=== PATIENT | male | born 1935 | race Caucasian/White ===

== ENCOUNTER 2020-03-17 14:29 | Emergency (ER) | payer OTHER ==
[~2020-03-17] VITALS: Ht 185.4 cm; Wt 94.8 kg
[2020-03-17 15:00] LABS: BASOPHILS # (AUTO) 0.1 /CMM (0.0-0.2); BASOPHILS % (AUTO) 1.2 % (0.0-2.0); EOSINOPHILS % (AUTO) 0.5 % (0.0-6.0); HEMATOCRIT 38 % (39-51); HEMOGLOBIN 12.6 g/dL (13.5-17.5); LYMPHOCYTES # (AUTO) 1.7 /CMM (0.8-4.8); LYMPHOCYTES % (AUTO) 21.1 % (20.0-44.0); MEAN CORPUSCULAR HGB CONC 34 g/dl (31.0-36.0); MEAN CORPUSCULAR VOLUME 92 fL (80-96); MONOCYTES # (AUTO) 0.7 /CMM (0.1-1.30); MONOCYTES % (AUTO) 8.5 % (2.0-12.0); NEUTROPHILS # (AUTO) 5.5 /CMM (1.8-8.9); NEUTROPHILS % (AUTO) 68.7 % (43.0-81.0); PLATELET COUNT (AUTO) 197 /CMM (150-450)
[2020-03-17] MEDS ORDERED: IV NS 0.9% 1,000 ML BAG IV ONE (15:00)
[2020-03-17 15:13] LABS: CALCIUM, SERUM 9.2 mg/dL (8.5-10.1); CREATININE 0.9 mg/dL (0.6-1.3)
--- NOTE | 2020-03-17 15:35 | NUR ---
BIB ra c/o syncopal episode while walking outside. On room, air breathing evenly and unlabored, connected to the monitor and pulse ox. kept comfortable, will continue to monitor accordingly.
[2020-03-17] MEDS ORDERED: LISI-607 PO (15:37)
[2020-03-17] MEDS ORDERED: FLUT16SP16 NS (15:37)
[2020-03-17 19:13] VITALS: BP 135/71
--- NOTE | 2020-03-17 19:13 | NUR ---
Patient discharged to home in stable condition. Written and verbal after care instructions given. Patient verbalizes understanding of instruction.IV removed. Catheter intact and site benign. Pressure and 4x4 applied to site. No bleeding noted.
== END 2020-03-17 19:13 | disposition home or self-care (01) ==
LOC: ER 14:32
DX: R55 Syncope and collapse (principal); R42 Dizziness and giddiness; I10 Essential (primary) hypertension; Z79.899 Other long term (current) drug therapy
CPT/HCPCS: 36415; 70450; 71045; 80048; 84484 ×2; 85025; 93005; 96360; 99285; J7030